=== PATIENT | female | born 1960 | race Caucasian/White ===

== ENCOUNTER → 2018-12-15 | Outpatient (CLI) | payer OTHER | END | disposition home or self-care (01) | LOC: MAMMO 11:00 | DX: Z12.31 Encounter for screening mammogram for malignant neoplasm of breast (principal) ==

== ENCOUNTER → 2019-01-11 | Outpatient (CLI) | payer OTHER | END | disposition home or self-care (01) | LOC: US 01-06 06:19 → MAMMO 01:36 → US 14:00 | DX: R92.8 Other abnormal and inconclusive findings on diagnostic imaging of breast (principal); R92.2 Inconclusive mammogram ==

== ENCOUNTER → 2020-03-23 | Outpatient (CLI) | payer OTHER ==
[2020-03-23 16:51] LABS: BASO # 0.1 10*3/uL (0.0-0.1); BASO % 0.8 % (0.0-1.0); EOS # 0.2 10*3/uL (0.0-0.4); EOS % 2.1 % (1.0-4.0); HEMATOCRIT 41.8 % (37.0-47.0); LYMPH # 1.8 10*3/uL (1.3-4.4); LYMPH % 25.5 % (27.0-41.0); MEAN CELL VOLUME 90.9 fl (81.0-99.0); MEAN CORPUSCULAR HGB 28.9 pg (27.0-31.0); MEAN CORPUSCULAR HGB CONC 31.8 g/dl (33.0-37.0); MEAN PLATELET VOLUME 9.9 fl (9.6-12.3); MONO # 0.5 10*3/uL (0.1-1.0); MONO % 7.6 % (3.0-9.0); NEUT # 4.6 10*3/uL (2.3-7.9); NEUT % 63.7 % (47.0-73.0); PLATELET COUNT AUTOMATED 315 10*3/uL (130-400); RED CELL DISTRI WIDTH 12.9 % (0-14.5); WHITE BLOOD COUNT 7.1 10*3/uL (4.8-10.8)
[2020-03-23 17:07] LABS: ALBUMIN 3.9 gm/dl (3.1-4.5); ALKALINE PHOSPHATASE 106 U/L (45-117); BUN 15 mg/dl (7-24); CHLORIDE 104 mmol/L (98-107); CHOLESTEROL 244 mg/dL (<200); CREATININE 0.94 mg/dL (0.55-1.02); HDL CHOLESTEROL 70 mg/dl (40-60); IRON 58 ug/dL (50-170); LDL CHOLESTEROL 162 mg/dL (9-159); SGOT/AST 23 IU/L (3-35); SGPT/ALT 24 U/L (12-78); SODIUM 138 mmol/L (136-145); TOTAL PROTEIN 7.9 gm/dL (6.4-8.2); TRIGLYCERIDES 58 mg/dl (<150); VLDL CHOLESTEROL 12 mg/dL (6-40)
== END | disposition home or self-care (01) ==
LOC: LAB 16:38
PROVIDERS: Emergency Medicine
DX: I34.1 Nonrheumatic mitral (valve) prolapse (principal); R53.83 Other fatigue; E78.00 Pure hypercholesterolemia, unspecified

== ENCOUNTER → 2020-03-30 | Outpatient (CLI) | payer OTHER | END | disposition home or self-care (01) | LOC: US 14:21 | DX: E07.9 Disorder of thyroid, unspecified (principal) ==

== ENCOUNTER → 2020-05-07 | Outpatient (CLI) | payer OTHER ==
[~2020-05-07] MED LIST: AHCC PO; ASPIRIN81 M1 PO; ATENOLOL25 MG PO; CALCIUM 600 +1 EAC7 PO; CENTURY ADULTS1 EACH PO; LIPITOR10 MG PO; VITAMIN B121000 MC1 PO; VITAMIN C500 M6 PO
--- NOTE | 2020-05-07 08:30 | NUR ---
INFORMED CONSENT OBTAINED FOR AN EXERCISE CARDIOLITE STRESS TEST WITH DR. JOHNSON. RESTING EKG SINUS RAMSES WITH INVERTED T WAVES V1-3. SUPINE BP 112/68, WITH A HT RT OF 40, STANDING BP 118/74, WITH A HT RT OF 40. PT COMPLETED 10:30 OF A VICKY PROTOCOL WITH COMPLETION OF STAGE THREE ON HOLD AT 3.4 MPH AND A 14% GRADE. REACHED A PEAK HT RT OF 127 WHICH IS 79% OF PREDICED MAX WITH A PEAK BP OF 150/74. TEST TERMINATED DUE TO FATIGUE. PT DEVELOPED LEFT CHEST TIGHTNESS IN STAGE II, RATED 5 ON SCALE 1-10. WENT TO A 6 IN STAGE III-IV. CHEST TIGHTNESS RELIEVED IN RECOVERY. HAS A GOOD EXERCISE TOLERANCE. LAST RECOVERY HT RT OF 69, WITH A BP OF 118/84. TAKEN TO NUCLEAR IMAGING IN STABLE CONDITION. HOLTOR MONITOR APPLIED ORDERED WITH INSTRUCTIONS GIVEN.
== END | disposition home or self-care (01) ==
LOC: CARD 00:09
PROVIDERS: ATTEND Internal Medicine Cardiovascular Disease
DX: I20.8 Other forms of angina pectoris (principal)